=== PATIENT | female | born 2000 | race Caucasian/White ===

== ENCOUNTER 2022-10-12 11:58 | Outpatient (RCR) | payer OTHER, SELFPAY ==
[2022-10-12 12:28] LABS: Basophils Percent Auto 0.3 % (0.2-1.2); Eosinophils Absolute Auto 0.1 K/mm3 (0-0.3); Eosinophils Percent Auto 0.8 % (0-4.4); Hematocrit 36.5 % (37.0-47.0); Hemoglobin 12.3 g/dL (12.0-15.0); Immature Granulocyte Absolute 0.02 K/mm3 (0.00-0.031); Immature Granulocyte Percent A 0.3 % (0-0.5); Lymphocytes Absolute Auto 1.58 K/mm3 (0.9-3.2); Lymphocytes Percent Auto 26.5 % (18.3-44.2); Mean Corpuscular HGB Conc 33.7 g/dl (32-36); Mean Corpuscular Hemoglobin 30.3 pg (26-34); Mean Corpuscular Volume 89.9 fl (80-100); Mean Platelet Volume 9.4 fl (7.4-10.4); Monocytes Absolute Auto 0.4 K/mm3 (0.1-0.6); Monocytes Percent Auto 6.4 % (2.6-8.5); Neutrophils Absolute Auto 3.9 K/mm3 (1.3-6.7); Neutrophils Percent Auto 65.7 % (45.5-73.1); Platelet Count Result 195 k/mm3 (150-375); Red Blood Count 4.06 M/mm3 (4.2-5.4); Red Cell Distribution Width 12.1 % (11.5-14.5)
[2022-10-12 13:16] LABS: Hepatitis B Surface Antigen Negative (Negative); Rubella IgG Antibody 18.1 IU/ML
[2022-10-12 13:19] LABS: HIV 1/2 Ab P24 Ag Result Negative (Negative)
[2022-10-15 08:05] LABS: Rapid Plasma Reagin Non-Reactive (NonReactive)
[2022-10-17 18:26] LABS: CMV IgG Antibody <0.60 U/mL (<0.60)
== END 2023-01-10 23:59 | disposition home or self-care (01) ==
LOC: ANHLAB 11:58
PROVIDERS: PCP Family Medicine; Visit Provider Student in an Organized Health Care Education/Training Program
DX: Z11.4 Encounter for screening for human immunodeficiency virus [HIV] (principal); O36.0190 Maternal care for anti-D [Rh] antibodies, unspecified trimester, not applicable or unspecified; Z3A.00 Weeks of gestation of pregnancy not specified
CPT/HCPCS: 36415; 84702; 85025; 86592; 86644; 86703; 86747; 86762; 86787; 86850; 86900; 86901; 87086; 87340; G0432

== ENCOUNTER 2022-12-14 18:26 | Emergency (ER) | payer OTHER, SELFPAY ==
[2022-12-14 18:28] VITALS: BP 117/75; PULSE 106; RESP 14; TEMP 36.7; O2SAT 99
--- NOTE | 2022-12-14 19:06 | ED.WOUNDLAC ---
HPI - Wound/Laceration General Chief Complaint: Wound/Laceration Stated Complaint: laceration Time Seen by Provider: 12/14/22 18:38 Source: patient Mode of arrival: ambulatory Limitations: no limitations History of Present Illness HPI narrative: This is a 22-year-old female that presents to the emergency department for a laceration to the left thumb. Sustained just prior to arrival. Reports she was trying to open a hose with a knife and the knife slipped. Reports bleeding and pain to the area. She is not up-to-date on tetanus. Denies decreased range of motion or numbness. Related Data Home Medications Medication Instructions Recorded Confirmed sertraline 100 mg tablet 100 mg PO 09/10/22 10/12/22 Allergies Allergy/AdvReac Type Severity Reaction Status Date / Time acetaminophen Allergy Intermediate Rash Verified 12/14/22 19:13 [From [facility] Day[facility]il] chlorpheniramine Allergy Intermediate Rash Verified 12/14/22 19:13 [From [facility] Day[facility]] dextromethorphan Allergy Intermediate Rash Verified 12/14/22 19:13 [From [facility]] guaifenesin Allergy Intermediate Rash Verified 12/14/22 19:13 [From [facility]il] phenylpropanolamine Allergy Intermediate Rash Verified 12/14/22 19:13 [From [facility]] pseudoephedrine Allergy Intermediate Rash Verified 12/14/22 19:13 [From [facility]] Review of Systems Review of Systems: CONSTITUTIONAL: Denies fever SKIN: Reports laceration NEUROLOGIC: Denies numbness All systems reviewed & are unremarkable except as noted in HPI and below PMFSH Past Medical History Medical History Anxiety Depression Screening for breast cancer Family History Family History Mother Cervical cancer Social History Social History Smoking status: Never smoker Alcohol intake: former Substance use: never Lack of Transportation: No Lack of Food: Never True Current Housing: I Have Housing Concerned About Future Housing: No Difficulty Paying Gas/Electric Bills: No Difficulty Paying for Meds: No Currently Unemployed: No Education: Associate Degree Difficulty w/ Childcare or Family Care: No Living arrangements: other Additional living arrangements comments: with partner's family Occupation/Education: occupation Additional occupation/education comments: laundry services Gender identity (if verbalized by the patient): Female Sexual Orientation (if Verbalized by the Patient): Bisexual Exam Narrative: GENERAL: Well-appearing, well-nourished, and in no acute distress. HEAD: Normocephalic, atraumatic. EYES: EOMI. EXTREMITIES: Normal range of motion. No edema. Left first finger distal phalanx with 1.5cm linear laceration into subcutaneous tissue SKIN: Warm, dry, no rash. NEURO: No focal deficits. Alert and oriented x3. PSYCH: Normal mood and affect Course Course Emergency Course: Patient educated on wound care Vital Signs Vital signs: Vital Signs Temperature 98.1 F 12/14/22 18:28 Pulse Rate 106 H 12/14/22 18:28 Respiratory Rate 14 12/14/22 18:28 Blood Pressure 117/75 12/14/22 18:28 Pulse Oximetry 99 12/14/22 18:28 Oxygen Delivery Room Air 12/14/22 18:28 Temperature 98.1 F 12/14/22 18:28 Pulse Rate 106 H 12/14/22 18:28 Respiratory Rate 14 12/14/22 18:28 Blood Pressure 117/75 12/14/22 18:28 Pulse Oximetry 99 12/14/22 18:28 Oxygen Delivery Room Air 12/14/22 18:28 Procedures Laceration Laceration 1: Date: 12/14/22 Time: 21:07 Site: hand Side (If applicable): left Size (cm): 1.5 Description: linear Depth: simple, single layer Local Anesthetic: lidocaine 1% Amount of anesthesia used (mL): 2 Pre-repair: wound explored and irrigated ====== Skin Leve
[2022-12-14] MEDS: TETANUS,DIPHTHERIA,AC PERTUSSIS ADULT (0.5 ML) BOOSTRIX IM (19:09)
== END 2022-12-14 21:29 | disposition home or self-care (01) ==
PROVIDERS: Emergency Provider Physician Assistant; PCP Family Medicine
DX: S61.012A Laceration without foreign body of left thumb without damage to nail, initial encounter (principal); Z23 Encounter for immunization; W26.0XXA Contact with knife, initial encounter
CPT/HCPCS: 12001; 90471; 90715; 99282

== ENCOUNTER 2023-02-14 07:44 | Outpatient (CLI) | payer OTHER, SELFPAY ==
--- NOTE | ~2023-02-14 | US_ITS ---
US breast RT limited 02/14/2023 08:07 Indication: History of mastitis. Patient on antibiotics. Decreased swelling following treatment. Mayelin ent 30 weeks . Procedure: High-resolution Limited ultrasound of the right breast Comparison: No prior studies for comparison. Findings: There is a complex hypoechoic area of soft tissue in the area palpable concern 11:00, 4.5 c m from the nipple with internal vascularity. Impression: 1: Complex vascular heterogeneous area of soft tissue in the area of palpable concern measuring appro ximately 3 cm greatest dimension. This likely represents phlegmonous change from known infection. No discrete abscess identified. Recommend repeat ultrasound and 4-6 weeks following appropriate therapy. BI-RADS CATEGORY 3-PROBABLY BENIGN FINDING Reviewed, dictated and finalized at location L. Impression: 1: Complex vascular heterogeneous area of soft tissue in the area of palpable c oncern measuring approximately 3 cm greatest dimension. This likely represents phlegmonous change from known infection. No discrete abscess identified. Recomm end repeat ultrasound and 4-6 weeks following appropriate therapy. BI-RADS CATEGORY 3-PROBABLY BENIGN FINDING
== END 2023-02-14 07:45 ==
LOC: MICIMG 07:45
PROVIDERS: PCP Obstetrics & Gynecology; Visit Provider Obstetrics & Gynecology
DX: N63.10 Unspecified lump in the right breast, unspecified quadrant (principal); R92.8 Other abnormal and inconclusive findings on diagnostic imaging of breast
CPT/HCPCS: 76642

== ENCOUNTER 2023-02-22 13:36 | Outpatient (CLI) | payer OTHER, SELFPAY ==
[2023-02-22 15:21] LABS: Hematocrit 35.3 % (37.0-47.0); Hemoglobin 11.9 g/dL (12.0-15.0); Mean Corpuscular HGB Conc 33.7 g/dl (32-36); Mean Corpuscular Hemoglobin 30.1 pg (26-34); Mean Corpuscular Volume 89.1 fl (80-100); Mean Platelet Volume 10.5 fl (7.4-10.4); Platelet Count Result 170 k/mm3 (150-375); Red Blood Count 3.96 M/mm3 (4.2-5.4); Red Cell Distribution Width 12.4 % (11.5-14.5); White Blood Count 8.7 K/mm3 (4.5-10.0)
[2023-02-22 15:32] LABS: Glucose 1 Hour PP 50gm Dose 154 mg/dL
[2023-02-22 16:12] LABS: HIV 1/2 Ab P24 Ag Result Negative (Negative)
== END 2023-02-22 13:37 | disposition home or self-care (01) ==
LOC: ANHLAB 13:37
PROVIDERS: PCP Family Medicine; Visit Provider Student in an Organized Health Care Education/Training Program
DX: Z34.90 Encounter for supervision of normal pregnancy, unspecified, unspecified trimester (principal)
CPT/HCPCS: 36415; 82947; 85027; 86703; G0432

== ENCOUNTER 2023-02-28 08:47 | Outpatient (CLI) | payer OTHER, SELFPAY ==
[2023-02-28 09:17] LABS: Glucose Fasting Gestational 91 mg/dL (>/=95)
[2023-02-28 10:54] LABS: Glucose 1 Hour Gest 159 mg/dL (>/=180)
[2023-02-28 11:38] LABS: Glucose 2 Hour Gest 145 mg/dL (>/= 155)
[2023-02-28 12:46] LABS: Glucose 3 Hour Gest 133 mg/dL (>/=140)
== END 2023-02-28 08:48 | disposition home or self-care (01) ==
PROVIDERS: PCP Family Medicine; Visit Provider Obstetrics & Gynecology
DX: R73.09 Other abnormal glucose (principal)
CPT/HCPCS: 36415; 82951; 82952

== ENCOUNTER 2023-04-24 12:05 | Inpatient (IN) | payer OTHER, SELFPAY ==
--- NOTE | 2023-04-24 12:05 | LDADM ---
This patient, Raissa Khalil, was admitted to Labor/Delivery/Recovery 108 on 04/24/23 at 12:05. Plans for labor, pain management and were discussed with patient. Patient/family oriented to hospital policies and general routines including ID bracelet, bed and alarms, visiting hours, pain management, procedures, bathroom and other care routines, personal items, smoking policy, room service/diet and guest tray routines, infant security routines, and visiting hours. Patient/Family are encouraged to report perceived risks to care and to ask questions if they do not understand what they are told or what they should do. See [facility] for further documentation.
[2023-04-24 13:21] VITALS: BP 126/82; PULSE 89; BMI 33.5
[2023-04-24 13:22] LABS: Basophils Percent Auto 0.4 % (0.2-1.2); Eosinophils Absolute Auto 0.1 K/mm3 (0-0.3); Eosinophils Percent Auto 1.5 % (0-4.4); Hematocrit 32.5 % (37.0-47.0); Hemoglobin 10.4 g/dL (12.0-15.0); Immature Granulocyte Absolute 0.06 K/mm3 (0.00-0.031); Immature Granulocyte Percent A 0.8 % (0-0.5); Lymphocytes Absolute Auto 1.53 K/mm3 (0.9-3.2); Lymphocytes Percent Auto 19.2 % (18.3-44.2); Mean Corpuscular Hemoglobin 27.7 pg (26-34); Mean Corpuscular Volume 86.4 fl (80-100); Mean Platelet Volume 11.6 fl (7.4-10.4); Monocytes Absolute Auto 0.7 K/mm3 (0.1-0.6); Monocytes Percent Auto 8.5 % (2.6-8.5); Neutrophils Absolute Auto 5.6 K/mm3 (1.3-6.7); Neutrophils Percent Auto 69.6 % (45.5-73.1); Platelet Count Result 185 k/mm3 (150-375); Red Blood Count 3.76 M/mm3 (4.2-5.4); Red Cell Distribution Width 13.2 % (11.5-14.5)
[2023-04-24] MEDS: miSOPROStol 25 MCG TABLET 50 MCG PO (13:50)
[2023-04-24 17:14] VITALS: TEMP 36.8
[2023-04-24 17:15] VITALS: BP 142/96; PULSE 80
[2023-04-24 17:16] VITALS: BP 132/90; PULSE 78; PULSE 85; O2SAT 100
[2023-04-24] MEDS: LACTATED RINGERS 1,000 ML 125 ML IV CONT (19:44)
[2023-04-24] MEDS: OXYTOCIN 30 UNITS/NS 500 ML 30 UNITS/500 ML BAG IV CONT (19:45)
[2023-04-24] MEDS: fentaNYL CITRATE INJ (*CRX) 100 MCG/2 ML VIAL IV PUSH (19:45)
[2023-04-24 19:48] VITALS: BP 130/78; PULSE 81; RESP 16; TEMP 36.8
[2023-04-24 23:12] VITALS: BP 128/85; PULSE 75
[2023-04-25] VITALS (132 sets, daily range): BP systolic 89–150; BP diastolic 52–117; PULSE 66–271; RESP 14–18; TEMP 36.4–37.2; O2SAT 90–100
[2023-04-25] MEDS: fentaNYL CITRATE INJ (*CRX) 100 MCG/2 ML VIAL IV PUSH (01:12)
[2023-04-25] MEDS: LACTATED RINGERS 1,000 ML 125 ML IV CONT (03:44)
[2023-04-25] MEDS: LACTATED RINGERS 500 ML 999 ML IV CONT (04:50)
[2023-04-25] MEDS: AMPICILLIN 2 GM/NS 100 ML 2 GM/100 ML BAG IVPB (05:29)
[2023-04-25] MEDS: SERTRALINE HCL 50 MG TABLET 100 MG PO (09:53)
[2023-04-25] MEDS: AMPICILLIN 1 GM/NS 50 ML 1 GM/50 ML BAG IVPB (09:55)
[2023-04-25] MEDS: miSOPROStol 200 MCG TABLET 1000 MCG RECTAL (12:10)
--- NOTE | 2023-04-25 12:12 | PM.OBPRVD ---
OB - Vaginal Delivery Note Procedure Delivery date: 04/25/23 Induction method: Per Misoprostol Protocol Delivery augmentation: Rupture of Membranes and Pitocin Delivery monitor: External FHT and External Uterine Route of delivery: Episiotomy description: None Laceration Description: Vaginal Delivery repair: vicryl Specimen: No Quantitative Blood Loss (ml): 300 Anesthesia type: Epidural Disposition: Floor Complications: No immediate complications Narrative: Patient pushed for a spontaneous vaginal delivery. The fetus was delivered atraumatically and placed on the maternal abdomen. The cord was clamped and cut after 1 minute of life. The cord was double clamped and cut and a segment of cord was collected for cord gases. Cord blood was collected for blood type and Coomb's testing. The placenta delivered spontaneously and was noted to be intact. The perineum was inspected and noted to be intact. The uterus had some atony and mild bleeding. misprostol rectally was given. . [place] Baby Date of : 04/25/23 Time of : 11:58 Weeks of gestation at delivery: 40 gender: Female presentation: vertex position: Right Occiput Anterior Placenta delivery description: Spontaneous Cord Vessel Description: 3 Vessels [facility] Delivery Billing Delivery Delivery: Delivery Charge
[2023-04-25] MEDS: METHYLERGONOVINE MALEATE 0.2 MG/ML VIAL IM (12:24)
[2023-04-25] MEDS: OXYTOCIN 30 UNITS/NS 500 ML 30 UNITS/500 ML BAG 125 UNITS IV CONT (12:30)
--- NOTE | 2023-04-25 13:18 | PC.NURSE ---
after initial QBL announced and while applying eusebia pads, fundal check initiated moderate amount of red bleeding. an additional couple 100mls noticed but unable to measure going into red bin. Additional medications given see jun. Dr Rosario notified and preformed US bedside. will continue fundal checks
[2023-04-25] MEDS: WITCH HAZEL 40 PADS 1 PAD TOPICAL (15:44)
[2023-04-25] MEDS: BENZOCAINE 20% AER SPR (*SP) 56 GM CAN 1 SPRAY TOPICAL (15:44)
[2023-04-25 15:53] LABS: Rapid Plasma Reagin Non-Reactive (NonReactive)
--- NOTE | 2023-04-25 16:33 | OBPPTRN ---
Patient transferred to post room #291 via wheelchair. Support person present. Oriented to unit, room, information board, rooming in, admission packet and security measures. Patient verbalizes understanding.
[2023-04-26] MEDS: IBUPROFEN 600 MG TABLET PO (04:22)
[2023-04-26 05:18] LABS: Hematocrit 27.3 % (37.0-47.0); Hemoglobin 8.9 g/dL (12.0-15.0)
[2023-04-26 07:35] VITALS: BP 106/58; PULSE 90; RESP 16; TEMP 37.1; O2SAT 100
--- NOTE | 2023-04-26 07:51 | WPDANLDPN2 ---
Anes-Prog Note L&D Date/Time: 04/26/23 07:51 Comfortable throughout: labor and delivery Neuraxial method: epidural Epidural/Spinal procedure site: clean & non-tender Neuro status: Neuro function grossly intact. Cardiovascular status: normal Respiratory status: normal Airway patency: baseline Mental status: baseline Post-Op hydration status: normal Vital Signs: Last Vital Signs Temp 37.2 C 04/25/23 22:43 Pulse 82 04/25/23 22:43 Resp 18 04/25/23 22:43 BP 131/79 04/25/23 22:43 Pulse Ox 99 04/25/23 17:10 O2 Del Method Room Air 04/25/23 22:43 Pain score (VAS): 05/01 I/O: Intake & Output 04/25/23 04/25/23 04/26/23 15:59 23:59 07:59 Intake Total 1450 500 Balance 1450 500 Post-procedural complaints: none Patient feedback: Patient satisfied with anesthetic care.
[2023-04-26] MEDS: POLYSACCHARIDE IRON COMPLEX 150 MG CAPSULE PO ×2 (08:50→17:34)
[2023-04-26] MEDS: MULTIVIT/MIN/PREN/FOL AC/IRON TABLET 1 TAB PO (08:50)
[2023-04-26] MEDS: DOCUSATE SODIUM 100 MG CAPSULE PO ×2 (08:50→17:34)
--- NOTE | 2023-04-26 13:50 | PC.NURSE ---
[id number] Introductions were made, then consulted with patient to assess needs related to . Mother states she is having difficulty keeping awake to breastfeed. Encouraged understanding of the benefits of skin to skin (demonstrating unwrapping infant and placing upright on her chest), stimulating with massage touch, changing positions to encourage wakefulness, how to watch for early feeding cues, responsive feeding, feeding on demand (aiming for 8-12 times in 24 hours, about every 2-3 hours), milk production, building/maintaining a milk supply, duration of feeding, signs of adequate intake/output and how to record on the feeding sheet. Mother works well with her infant with encouragement and education. Reviewed positioning and ear, shoulder, hip alignment, supporting the breast to facilitate a deep latch, asymmetrical latch (off-center), leading with the chin with a big, open, wide gape and body close to mother. Infant latched optimally to the left breast in football position. Education given to the mother of how to visualize the suckling (with good rocking jaw motion), swallows (dropping of the lower jaw) and how to listen for drinking at the breast (the ka sound) which demonstrates with suck swallow ratio of 3:1 most of the time. Voids and stools are appropriate at this time for age of life. Infant was able to maintain latch without pain to mother protecting the nipple with optimal positioning and latching. After infant self detached she was moved to [id number], feeding cues were visualized, then moved to the right breast. either latched shallow or was sleepy and reluctant. Reviewed comfort measures of healing with a warm, wet washcloth to rinse breast, then leave open to air-dry, good handwashing when or touching the breast/nipples to prevent infection. Reviewed preventing and watching for mastitis since mother had the infection early in her . Mother voiced understanding of skin to skin, stimulating with massage touch, responsive feedings, hand expressed colostrum, talking to to encourage if it has been 2 -2.5 hours since the start of the last , to call if does not latch, or if there is discomfort with . Resources used for education were facilitated with the tool, mom and baby guide. Inpatient/outpatient resources provided with feeding sheet, name written on the communication board, and the mom/baby guide. Parents voiced understanding of information, demonstrated learning and will call if there is a request for assistance. Reported to the Primary RN.
--- NOTE | 2023-04-26 14:56 | PM.OBDSVD ---
DS: Admitting Diagnosis Discharge Date 04/27/2023 Admitting Diagnosis DS: Discharge Diagnosis Discharge Diagnosis (1) , delivered: Code(s): O80 - Encounter for full-term uncomplicated delivery Status: Acute OB - DS: Summary OB Procedures : None OB Procedures Intrapartum: Spontaneous Vag Delivery OB Procedures: : None Peripartum Data Laceration Description: Vaginal Episiotomy description: None Time Spent with Patient Time attestation: Total time spent providing and/or coordinating discharge services: DS: Data Data Completed and Pending Labs on day of discharge: Labs from last 24 hours 04/26/23 04/24/23 04:18 12:46 Hgb 8.9 L Hct 27.3 L RPR Non-reactive Discharge Plan Discharge Discharging Clinician: Blade Fenton Patient Disposition: Home, Self-Care Activity: as tolerated and pelvic rest Diet: as tolerated Patient Instructions: Antibiotic Form Stand Alone Forms: General Discharge Information Follow-up/Referrals: Betito Rosario MD [Physician] - 3 Weeks Discharge Medications: New ibuprofen 600 mg Tablet 600 mg PO Q8H Qty: 30 0RF Continued sertraline 100 mg tablet 100 mg PO DAILY #2 Tablet 1 tablet PO DAILY Date of admission: 04/24/23 12:05 Primary Care Provider: BryaneNsha Admitting Provider: Betito Rosario Attending physician on admission: Betito Rosario Condition: Stable
[2023-04-26 20:00] VITALS: BP 124/72; PULSE 81; RESP 18; TEMP 36.7; O2SAT 99
[2023-04-26] MEDS: ACETAMINOPHEN 325 MG TABLET 650 MG PO (20:37)
[2023-04-26] MEDS: SERTRALINE HCL 50 MG TABLET 100 MG PO (20:38)
[2023-04-27 08:10] VITALS: BP 118/75; PULSE 68; RESP 18; TEMP 36.4
[2023-04-27] MEDS: IBUPROFEN 600 MG TABLET PO (12:51)
[2023-04-27] MEDS: POLYSACCHARIDE IRON COMPLEX 150 MG CAPSULE PO (12:52)
[2023-04-27] MEDS: MULTIVIT/MIN/PREN/FOL AC/IRON TABLET 1 TAB PO (12:52)
[2023-04-27] MEDS: DOCUSATE SODIUM 100 MG CAPSULE PO (12:52)
[2023-04-29 10:17] VITALS: BP 120/81; PULSE 81; RESP 18; TEMP 37.3; O2SAT 100
== END 2023-04-27 14:16 | disposition home or self-care (01) | DRG 807 ==
LOC: ANHOB2 04-27 12:36 → ANHLDR 04-29 09:46 → ANHOB2 04-29 09:46
PROVIDERS: Admitting Provider Student in an Organized Health Care Education/Training Program; PCP Family Medicine; Visit Provider Obstetrics & Gynecology
DX: O99.824 Streptococcus B carrier state complicating childbirth (principal); Z37.0 Single live birth; Z3A.40 40 weeks gestation of pregnancy; O77.0 Labor and delivery complicated by meconium in amniotic fluid; O72.1 Other immediate postpartum hemorrhage; O70.0 First degree perineal laceration during delivery
CPT/HCPCS: 36415; 84112; 85014; 85018; 85025; 86592; 86850; 86900; 86901; A9270; J0290; J2210; J2590; J2795; J3010; J7120